=== PATIENT | female | born 1955 | race Caucasian/White ===

== ENCOUNTER 2020-07-09 18:39 | Inpatient (IN) ==
[2020-07-09] MEDS ORDERED: Ondansetron ODT 4 MG TAB.RAPDIS SL PRN ×2 (21:08→23:47)
[2020-07-09] MEDS ORDERED: Naloxone 0.4 MG/ML INJ IVP PRN (21:08)
[2020-07-09] MEDS ORDERED: Acetaminophen 325 MG TABLET PO PRN (21:08)
[2020-07-09] MEDS: Ipratropium/Albuterol Neb 3 ML IH SCH (22:07)
[2020-07-09] MEDS: predniSONE 20 MG TABLET PO SCH (23:53)
[2020-07-09] MEDS: Nicotine 7 MG PATCH.TD24 TD SCH (23:53)
[2020-07-10] MEDS: *HR* OxyCODONE ER (12 HR) 20 MG TABLET PO SCH ×2 (04:27→17:26)
[2020-07-10] MEDS: Ipratropium/Albuterol Neb 3 ML IH SCH ×4 (04:27→22:28)
[2020-07-10 05:21] LABS: Basophils % 0.2 %; Hematocrit 48.5 % (35.3-44.9); Immature Granulocytes % 0.6 % (0-4); Lymphocytes # 0.7 K/mcL (0.6-4.6); Lymphocytes % 10.3 %; Mean Corpuscular HGB Conc 30.9 g/dL (31.6-35.5); Mean Corpuscular Hemoglobin 27.1 pg (28.0-33.3); Mean Corpuscular Volume 87.5 fL (83.0-100.0); Mean Platelet Volume 8.5 fL (9.4-12.4); Monocytes # 0.3 K/mcL (0.0-1.3); Monocytes % 4.9 %; Neutrophils # 5.3 K/mcL (1.6-8.9); Platelet Count 344 K/mcL (140-400); Red Blood Count 5.54 M/mcL (3.82-4.97); Red Cell Distribution Width 17.7 % (11.5-14.5); White Blood Count 6.3 K/mcL (4.3-11.1)
[2020-07-10 05:38] LABS: BUN/Creatinine Ratio 21 (6-26); Blood Urea Nitrogen 17 mg/dL (8-23); Calcium 8.8 mg/dL (8.6-10.3); Carbon Dioxide 25 mEq/L (23-29); Chloride 101 mEq/L (98-107); Glucose 108 mg/dL (70-105); Osmolality,Calculated 286 (280-300); Potassium 4.4 mEq/L (3.5-5.1); Sodium 137 mEq/L (136-145); eGFR For African Americans > 60 (> 60); eGFR For Non-African Americans > 60 (> 60)
[2020-07-10] MEDS: Gabapentin 300 MG CAPSULE PO SCH ×3 (09:44→22:59)
[2020-07-10] MEDS: Aspirin 81 MG TAB.CHEW PO SCH (09:45)
[2020-07-10] MEDS: predniSONE 20 MG TABLET PO SCH (09:45)
[2020-07-10] MEDS: Nicotine 7 MG PATCH.TD24 TD SCH (09:45)
[2020-07-10] MEDS: Budesonide/Formoterol 80/4.5 1 PUFF INH IH SCH ×2 (10:45→22:30)
[2020-07-10 17:26] LABS: Bilirubin,Urine Negative (Negative); Blood,Urine Moderate (Negative); Clarity,Urine Cloudy (Clear); Color,Urine Yellow (Yellow); Glucose,Urine (UA) Normal (Normal); Ketones,Urine 15 mg/dL (Negative); Leukocyte Esterase,Urine Moderate (Negative); Nitrite,Urine Positive (Negative); PH,Urine >=9.0 pH Units (5.0-8.0); Protein,Urine >=300 mg/dL (Neg-Trace); Urobilinogen,Urine Normal (Normal)
[2020-07-10] MEDS: *HR* Rivaroxaban 10 MG TABLET PO SCH (17:26)
[2020-07-10 17:35] LABS: RBC,Urine 15-30 per hpf (0-3); Triple Phosphate Crystal,Urine Present
[2020-07-10 17:36] LABS: Bacteria,Urine Moderate per hpf (None-Few); WBC,Urine 15-30 per hpf (0-3)
[2020-07-10] MEDS: Ibuprofen 400 MG TABLET PO PRN (22:59)
[2020-07-11] MEDS: Ipratropium/Albuterol Neb 3 ML IH SCH ×4 (04:39→21:39)
[2020-07-11] MEDS: *HR* OxyCODONE ER (12 HR) 20 MG TABLET PO SCH ×2 (04:39→18:13)
[2020-07-11 06:31] LABS: Basophils % 0.1 %; Eosinophils % 0.3 %; Hematocrit 41.9 % (35.3-44.9); Hemoglobin 13.2 g/dL (11.5-15.4); Immature Granulocytes % 0.5 % (0-4); Lymphocytes # 1.2 K/mcL (0.6-4.6); Lymphocytes % 11.7 %; Mean Corpuscular HGB Conc 31.5 g/dL (31.6-35.5); Mean Corpuscular Hemoglobin 27.3 pg (28.0-33.3); Mean Corpuscular Volume 86.7 fL (83.0-100.0); Mean Platelet Volume 8.4 fL (9.4-12.4); Monocytes # 0.8 K/mcL (0.0-1.3); Neutrophils # 8.1 K/mcL (1.6-8.9); Platelet Count 289 K/mcL (140-400); Red Blood Count 4.83 M/mcL (3.82-4.97); Red Cell Distribution Width 17.1 % (11.5-14.5); Segmented Neutrophils % 79.4 %; White Blood Count 10.2 K/mcL (4.3-11.1)
[2020-07-11 06:48] LABS: BUN/Creatinine Ratio 25 (6-26); Blood Urea Nitrogen 23 mg/dL (8-23); Calcium 8.3 mg/dL (8.6-10.3); Carbon Dioxide 30 mEq/L (23-29); Chloride 101 mEq/L (98-107); Glucose 95 mg/dL (70-105); Osmolality,Calculated 283 (280-300); Potassium 3.7 mEq/L (3.5-5.1); Sodium 135 mEq/L (136-145); eGFR For African Americans > 60 (> 60); eGFR For Non-African Americans > 60 (> 60)
[2020-07-11] MEDS: Budesonide/Formoterol 80/4.5 1 PUFF INH IH SCH ×2 (09:06→21:39)
[2020-07-11] MEDS: Aspirin 81 MG TAB.CHEW PO SCH (10:02)
[2020-07-11] MEDS: Gabapentin 300 MG CAPSULE PO SCH ×3 (10:02→20:41)
[2020-07-11] MEDS: Nicotine 7 MG PATCH.TD24 TD SCH (10:03)
[2020-07-11] MEDS: predniSONE 20 MG TABLET PO SCH (10:03)
[2020-07-11] MEDS: Ibuprofen 400 MG TABLET PO PRN (13:51)
[2020-07-11] MEDS: *HR* Rivaroxaban 10 MG TABLET PO SCH (18:13)
[2020-07-12] MEDS: *HR* OxyCODONE ER (12 HR) 20 MG TABLET PO SCH ×2 (05:30→17:11)
[2020-07-12] MEDS: Ipratropium/Albuterol Neb 3 ML IH SCH ×4 (05:30→21:44)
[2020-07-12 06:00] LABS: Basophils % 0.1 %; Eosinophils % 0.1 %; Hematocrit 40.5 % (35.3-44.9); Hemoglobin 12.6 g/dL (11.5-15.4); Immature Granulocytes % 0.5 % (0-4); Lymphocytes % 13.9 %; Mean Corpuscular HGB Conc 31.1 g/dL (31.6-35.5); Mean Corpuscular Hemoglobin 27.2 pg (28.0-33.3); Mean Corpuscular Volume 87.5 fL (83.0-100.0); Mean Platelet Volume 8.1 fL (9.4-12.4); Monocytes # 0.7 K/mcL (0.0-1.3); Monocytes % 8.8 %; Neutrophils # 5.7 K/mcL (1.6-8.9); Platelet Count 223 K/mcL (140-400); Red Blood Count 4.63 M/mcL (3.82-4.97); Segmented Neutrophils % 76.6 %; White Blood Count 7.5 K/mcL (4.3-11.1)
[2020-07-12 06:46] LABS: BUN/Creatinine Ratio 25 (6-26); Blood Urea Nitrogen 19 mg/dL (8-23); Calcium 8.1 mg/dL (8.6-10.3); Carbon Dioxide 28 mEq/L (23-29); Chloride 105 mEq/L (98-107); Glucose 99 mg/dL (70-105); Osmolality,Calculated 284 (280-300); Sodium 136 mEq/L (136-145); eGFR For African Americans > 60 (> 60); eGFR For Non-African Americans > 60 (> 60)
[2020-07-12] MEDS: Budesonide/Formoterol 80/4.5 1 PUFF INH IH SCH ×2 (10:09→21:47)
[2020-07-12] MEDS: *HR* OxyCODONE Immed Rel 15 MG TABLET PO PRN (10:38)
[2020-07-12] MEDS: Gabapentin 300 MG CAPSULE PO SCH ×3 (10:38→20:59)
[2020-07-12] MEDS: Nicotine 7 MG PATCH.TD24 TD SCH (10:38)
[2020-07-12] MEDS: predniSONE 20 MG TABLET PO SCH (10:38)
[2020-07-12] MEDS: Aspirin 81 MG TAB.CHEW PO SCH (10:40)
[2020-07-12] MEDS: *HR* Rivaroxaban 10 MG TABLET PO SCH (15:57)
[2020-07-13] MEDS: Ipratropium/Albuterol Neb 3 ML IH SCH ×4 (04:13→22:14)
[2020-07-13] MEDS: *HR* OxyCODONE ER (12 HR) 20 MG TABLET PO SCH ×2 (06:37→17:58)
[2020-07-13] MEDS: predniSONE 20 MG TABLET PO SCH (09:28)
[2020-07-13] MEDS: Aspirin 81 MG TAB.CHEW PO SCH (09:28)
[2020-07-13] MEDS: Nicotine 7 MG PATCH.TD24 TD SCH (09:28)
[2020-07-13] MEDS: Gabapentin 300 MG CAPSULE PO SCH ×3 (09:28→19:58)
[2020-07-13] MEDS: *HR* OxyCODONE Immed Rel 15 MG TABLET PO PRN (09:31)
[2020-07-13] MEDS: Budesonide/Formoterol 80/4.5 1 PUFF INH IH SCH ×2 (11:44→22:17)
[2020-07-13] MEDS: *HR* Rivaroxaban 10 MG TABLET PO SCH (15:43)
[2020-07-14] MEDS: Ipratropium/Albuterol Neb 3 ML IH SCH ×2 (03:58→10:15)
[2020-07-14] MEDS: *HR* OxyCODONE ER (12 HR) 20 MG TABLET PO SCH (05:07)
[2020-07-14] MEDS: predniSONE 20 MG TABLET PO SCH (08:54)
[2020-07-14] MEDS: Aspirin 81 MG TAB.CHEW PO SCH (08:54)
[2020-07-14] MEDS: Gabapentin 300 MG CAPSULE PO SCH ×2 (08:54→14:49)
[2020-07-14] MEDS: Nicotine 7 MG PATCH.TD24 TD SCH (08:55)
[2020-07-14] MEDS: Budesonide/Formoterol 80/4.5 1 PUFF INH IH SCH (10:15)
[2020-07-14 11:17] VITALS: BP 110/67
[2020-07-14] MEDS ORDERED: FLU Vac QV 20-21 (6Month+)/PF 0.5 ML SYRINGE IM ONE (14:15)
== END 2020-07-14 16:26 | disposition home health service (06) | DRG 191 ==
LOC: INPGRE
PROVIDERS: ADMIT Family Medicine; ATTEND Family Medicine

== ENCOUNTER 2021-05-02 10:29 | Inpatient (IN) ==
[2021-05-02 11:20] LABS: Hematocrit 44.9 % (35.3-44.9); Hemoglobin 13.9 g/dL (11.5-15.4); Mean Corpuscular Hemoglobin 28.3 pg (28.0-33.3); Mean Corpuscular Volume 91.3 fL (83.0-100.0); Mean Platelet Volume 8.1 fL (9.4-12.4); Platelet Count 232 K/mcL (140-400); Red Blood Count 4.92 M/mcL (3.82-4.97); Red Cell Distribution Width 14.8 % (11.5-14.5); White Blood Count 10.1 K/mcL (4.3-11.1)
[2021-05-02 11:29] LABS: INR 1.1; Prothrombin Time 12.2 Seconds (9.4-12.1)
[2021-05-02 11:38] LABS: Bilirubin,Urine Small (Negative); Blood,Urine Moderate (Negative); Color,Urine Yellow (Yellow); Glucose,Urine (UA) Normal (Normal); Ketones,Urine Negative (Negative); Leukocyte Esterase,Urine Large (Negative); Nitrite,Urine Negative (Negative); PH,Urine 8.5 pH Units (5.0-8.0); Protein,Urine 30 mg/dL (Neg-Trace); Specific Gravity,Urine 1.015 (1.010-1.025); Urobilinogen,Urine Normal (Normal)
[2021-05-02 11:38] LABS: BUN/Creatinine Ratio 11 (6-26); Blood Urea Nitrogen 9 mg/dL (8-23); Calcium 8.6 mg/dL (8.6-10.3); Carbon Dioxide 33 mEq/L (23-29); Chloride 100 mEq/L (98-107); Glucose 76 mg/dL (70-105); Osmolality,Calculated 281 (280-300); Potassium 4.3 mEq/L (3.5-5.1); Sodium 137 mEq/L (136-145); eGFR For African Americans > 60 (> 60); eGFR For Non-African Americans > 60 (> 60)
[2021-05-02 11:39] LABS: Troponin I < 0.03 ng/mL (< 0.04)
[2021-05-02 11:39] LABS: Clarity,Urine Cloudy (Clear)
[2021-05-02 11:42] LABS: Bacteria,Urine Many per hpf (None-Few)
[2021-05-02] MEDS ORDERED: Piperacillin/Tazobactam 3.375 GM in 0.9 % Sodium Chloride Mini Bag 100 ML IVPB ONE (11:54)
[2021-05-02] MEDS ORDERED: Ondansetron ODT 4 MG TAB.RAPDIS PO PRN (16:02)
[2021-05-02] MEDS ORDERED: Acetaminophen 325 MG TABLET PO PRN (16:02)
[2021-05-02] MEDS: MethylPREDNISolone 40 MG/ML VIAL IVP SCH (17:35)
[2021-05-02] MEDS: Budesonide/Formoterol 160/4.5 1 PUFF INH IH SCH (20:37)
[2021-05-02] MEDS: Ipratropium/Albuterol Neb 3 ML IH PRN (20:38)
[2021-05-02] MEDS: Gabapentin 300 MG CAPSULE PO SCH (20:53)
[2021-05-02] MEDS: Piperacillin/Tazobactam 3.375 GM in 0.9 % Sodium Chloride Mini Bag 100 ML IVPB SCH (20:53)
[2021-05-03] MEDS: MethylPREDNISolone 40 MG/ML VIAL IVP SCH ×4 (00:42→23:03)
[2021-05-03] MEDS: Piperacillin/Tazobactam 3.375 GM in 0.9 % Sodium Chloride Mini Bag 100 ML IVPB SCH ×3 (05:06→20:42)
[2021-05-03 05:19] LABS: Basophils % 0.2 %; Hematocrit 47.4 % (35.3-44.9); Hemoglobin 14.5 g/dL (11.5-15.4); Immature Granulocytes % 0.9 % (0-4); Lymphocytes # 0.5 K/mcL (0.6-4.6); Lymphocytes % 5.2 %; Mean Corpuscular HGB Conc 30.6 g/dL (31.6-35.5); Mean Corpuscular Hemoglobin 27.9 pg (28.0-33.3); Mean Corpuscular Volume 91.3 fL (83.0-100.0); Mean Platelet Volume 8.2 fL (9.4-12.4); Monocytes # 0.1 K/mcL (0.0-1.3); Monocytes % 0.7 %; Neutrophils # 9.2 K/mcL (1.6-8.9); Platelet Count 252 K/mcL (140-400); Red Blood Count 5.19 M/mcL (3.82-4.97); Red Cell Distribution Width 14.8 % (11.5-14.5); White Blood Count 9.9 K/mcL (4.3-11.1)
[2021-05-03 05:35] LABS: Alanine Aminotransferase 10 Units/L (7-52); Albumin 3.8 g/dL (3.5-5.7); Albumin/Globulin Ratio 1.2 (1.1-2.2); Alkaline Phosphatase 119 Units/L (34-104); Aspartate Amino Transferase 15 Units/L (13-39); BUN/Creatinine Ratio 15 (6-26); Bilirubin,Total 0.6 mg/dL (0.3-1.0); Blood Urea Nitrogen 14 mg/dL (8-23); Calcium 8.9 mg/dL (8.6-10.3); Carbon Dioxide 29 mEq/L (23-29); Chloride 99 mEq/L (98-107); Globulin 3.1 g/dL (2.4-3.5); Glucose 103 mg/dL (70-105); Osmolality,Calculated 283 (280-300); Potassium 4.5 mEq/L (3.5-5.1); Sodium 136 mEq/L (136-145); Total Protein 6.9 g/dL (6.4-8.9); eGFR For African Americans > 60 (> 60); eGFR For Non-African Americans > 60 (> 60)
[2021-05-03] MEDS ORDERED: *HR* Enoxaparin 30 MG/0.3 ML SYRINGE SQ SCH (06:00)
[2021-05-03] MEDS: Budesonide/Formoterol 160/4.5 1 PUFF INH IH SCH ×2 (09:25→21:49)
[2021-05-03] MEDS: Ipratropium/Albuterol Neb 3 ML IH PRN ×2 (09:26→16:18)
[2021-05-03] MEDS: Gabapentin 300 MG CAPSULE PO SCH ×3 (09:35→20:42)
[2021-05-03] MEDS: *HR* Buprenorphine HCl 8 MG TAB.SUBL SL SCH (20:42)
[2021-05-04] MEDS: Piperacillin/Tazobactam 3.375 GM in 0.9 % Sodium Chloride Mini Bag 100 ML IVPB SCH ×3 (03:59→20:15)
[2021-05-04] MEDS: *HR* Enoxaparin 40 MG/0.4 ML SYRINGE SQ SCH (05:18)
[2021-05-04] MEDS: *HR* Buprenorphine HCl 8 MG TAB.SUBL SL SCH ×2 (08:59→20:15)
[2021-05-04] MEDS: Gabapentin 300 MG CAPSULE PO SCH ×3 (08:59→20:15)
[2021-05-04] MEDS: MethylPREDNISolone 40 MG/ML VIAL IVP SCH ×2 (08:59→17:11)
[2021-05-04] MEDS: Budesonide/Formoterol 160/4.5 1 PUFF INH IH SCH ×2 (09:53→20:11)
[2021-05-05] MEDS: Piperacillin/Tazobactam 3.375 GM in 0.9 % Sodium Chloride Mini Bag 100 ML IVPB SCH (03:58)
[2021-05-05 05:08] LABS: Hematocrit 40.4 % (35.3-44.9); Immature Granulocytes % 0.8 % (0-4); Lymphocytes # 0.5 K/mcL (0.6-4.6); Lymphocytes % 6.3 %; Mean Corpuscular HGB Conc 30.9 g/dL (31.6-35.5); Mean Corpuscular Hemoglobin 28.5 pg (28.0-33.3); Mean Corpuscular Volume 92.2 fL (83.0-100.0); Mean Platelet Volume 8.6 fL (9.4-12.4); Monocytes # 0.2 K/mcL (0.0-1.3); Monocytes % 3.3 %; Neutrophils # 6.5 K/mcL (1.6-8.9); Platelet Count 197 K/mcL (140-400); Red Blood Count 4.38 M/mcL (3.82-4.97); Red Cell Distribution Width 14.9 % (11.5-14.5); Segmented Neutrophils % 89.6 %; White Blood Count 7.3 K/mcL (4.3-11.1)
[2021-05-05 05:11] LABS: Hemoglobin 12.5 g/dL (11.5-15.4)
[2021-05-05] MEDS: MethylPREDNISolone 40 MG/ML VIAL IVP SCH (05:11)
[2021-05-05] MEDS: *HR* Enoxaparin 40 MG/0.4 ML SYRINGE SQ SCH (05:11)
[2021-05-05 05:21] LABS: BUN/Creatinine Ratio 25 (6-26); Blood Urea Nitrogen 20 mg/dL (8-23); Calcium 8.3 mg/dL (8.6-10.3); Carbon Dioxide 34 mEq/L (23-29); Chloride 101 mEq/L (98-107); Glucose 117 mg/dL (70-105); Osmolality,Calculated 288 (280-300); Potassium 4.6 mEq/L (3.5-5.1); Sodium 137 mEq/L (136-145); eGFR For African Americans > 60 (> 60); eGFR For Non-African Americans > 60 (> 60)
[2021-05-05 08:38] VITALS: BP 148/71; PULSE 87; RESP 14; TEMP 98.4; O2SAT 95
[2021-05-05] MEDS: Budesonide/Formoterol 160/4.5 1 PUFF INH IH SCH (09:37)
[2021-05-05] MEDS: *HR* Buprenorphine HCl 8 MG TAB.SUBL SL SCH (09:38)
[2021-05-05] MEDS: Gabapentin 300 MG CAPSULE PO SCH (09:38)
[2021-05-05] MEDS: Ipratropium/Albuterol Neb 3 ML IH PRN (09:41)
== END 2021-05-05 11:00 | DRG 698 ==
LOC: SUPCPDRO → EMEROOGRE 10:29 → INPGRE 13:30
PROVIDERS: ADMIT Family Medicine; ATTEND Family Medicine

== ENCOUNTER 2021-05-29 09:15 | Inpatient (IN) ==
[2021-05-29] MEDS ORDERED: Levalbuterol Neb 1.25 MG/3 ML IH ONE (09:32)
[2021-05-29] MEDS ORDERED: Levalbuterol Neb 1.25 MG/3 ML ONE (09:39)
[2021-05-29 10:03] LABS: Basophils % 0.6 %; Eosinophils # 0.1 K/mcL (0.0-0.6); Hematocrit 43.8 % (35.3-44.9); Hemoglobin 13.5 g/dL (11.5-15.4); Immature Granulocytes % 1.3 % (0-4); Lymphocytes # 0.7 K/mcL (0.6-4.6); Lymphocytes % 9.8 %; Mean Corpuscular HGB Conc 30.8 g/dL (31.6-35.5); Mean Corpuscular Hemoglobin 28.2 pg (28.0-33.3); Mean Corpuscular Volume 91.4 fL (83.0-100.0); Mean Platelet Volume 8.3 fL (9.4-12.4); Monocytes # 0.5 K/mcL (0.0-1.3); Monocytes % 6.7 %; Neutrophils # 5.6 K/mcL (1.6-8.9); Platelet Count 272 K/mcL (140-400); Red Blood Count 4.79 M/mcL (3.82-4.97); Red Cell Distribution Width 16.6 % (11.5-14.5); Segmented Neutrophils % 80.6 %
[2021-05-29 10:16] LABS: Magnesium 1.7 mg/dL (1.6-2.6)
[2021-05-29 10:17] LABS: Alanine Aminotransferase 13 Units/L (7-52); Albumin 3.2 g/dL (3.5-5.7); Albumin/Globulin Ratio 0.9 (1.1-2.2); Alkaline Phosphatase 93 Units/L (34-104); Aspartate Amino Transferase 11 Units/L (13-39); BUN/Creatinine Ratio 12 (6-26); Bilirubin,Total 0.3 mg/dL (0.3-1.0); Blood Urea Nitrogen 9 mg/dL (8-23); Calcium 8.5 mg/dL (8.6-10.3); Carbon Dioxide 27 mEq/L (23-29); Chloride 106 mEq/L (98-107); Globulin 3.7 g/dL (2.4-3.5); Glucose 86 mg/dL (70-105); Osmolality,Calculated 288 (280-300); Potassium 4.2 mEq/L (3.5-5.1); Sodium 140 mEq/L (136-145); Total Protein 6.9 g/dL (6.4-8.9); eGFR For African Americans > 60 (> 60); eGFR For Non-African Americans > 60 (> 60)
[2021-05-29 10:19] LABS: ABG Base Excess -1 mEq/L (-2 to 3); ABG HCO3 25 mEq/L (21-27); ABG Oxygen Saturation 97 % (95-98); ABG PCO2 45 mmHg (35-45); ABG PH 7.36 pH Units (7.32-7.45); ABG PO2 98 mmHg (85-104); ABG TCO2 27 mEq/L (20-26)
[2021-05-29 10:21] LABS: Troponin I < 0.03 ng/mL (< 0.04)
[2021-05-29] MEDS ORDERED: 0.9 % Sodium Chloride 500 ML IVC ONE (11:49)
[2021-05-29] MEDS ORDERED: Ondansetron 4 MG/2 ML VIAL IVP PRN (12:20)
[2021-05-29] MEDS ORDERED: Acetaminophen 325 MG TABLET PO PRN (12:20)
[2021-05-29] MEDS ORDERED: Naloxone 0.4 MG/ML INJ IVP PRN (12:20)
[2021-05-29] MEDS: Budesonide/Formoterol 160/4.5 1 PUFF INH IH SCH ×2 (13:10→20:32)
[2021-05-29] MEDS: Ipratropium/Albuterol Neb 3 ML IH SCH ×4 (13:13→23:59)
[2021-05-29] MEDS: MethylPREDNISolone 40 MG/ML VIAL IVP SCH ×3 (14:45→22:27)
[2021-05-29] MEDS: levoFLOXacin 750 MG/150 ML 750 MG/150 ML BAG IVPB SCH (14:46)
[2021-05-29] MEDS: Gabapentin 300 MG CAPSULE PO SCH ×2 (14:46→22:27)
[2021-05-29 20:12] LABS: Adenovirus Not Detected (Not Detect); Bordetella Pertussis Not Detected (Not Detect); Chlamydophila pneumoniae Not Detected (Not Detect); Coronavirus 229E Not Detected (Not Detect); Coronavirus HKU1 Not Detected (Not Detect); Coronavirus NL63 Not Detected (Not Detect); Coronavirus OC43 Not Detected (Not Detect); Human Metapneumovirus Not Detected (Not Detect); Human Rhinovirus/Enterovirus Not Detected (Not Detect); Influenza A Subtype 2009 H1 Not Detected (Not Detect); Influenza B Not Detected (Not Detect); Mycoplasma pneumoniae Not Detected (Not Detect); Parainfluenza Virus 1 Not Detected (Not Detect); Parainfluenza Virus 2 Not Detected (Not Detect); Parainfluenza Virus 3 Not Detected (Not Detect); Parainfluenza Virus 4 Not Detected (Not Detect); Respiratory Syncytial Virus Not Detected (Not Detect); SARS-CoV-2 Not Detected (Not Detect)
[2021-05-30] MEDS: Ipratropium/Albuterol Neb 3 ML IH SCH ×6 (03:56→23:49)
[2021-05-30] MEDS: MethylPREDNISolone 40 MG/ML VIAL IVP SCH ×4 (05:30→23:42)
[2021-05-30] MEDS: *HR* Enoxaparin 40 MG/0.4 ML SYRINGE SQ SCH (05:31)
[2021-05-30] MEDS: Budesonide/Formoterol 160/4.5 1 PUFF INH IH SCH ×2 (07:00→20:00)
[2021-05-30 07:41] LABS: Hematocrit 41.6 % (35.3-44.9); Hemoglobin 12.6 g/dL (11.5-15.4); Mean Corpuscular HGB Conc 30.3 g/dL (31.6-35.5); Mean Corpuscular Hemoglobin 27.9 pg (28.0-33.3); Mean Corpuscular Volume 92.2 fL (83.0-100.0); Mean Platelet Volume 8.3 fL (9.4-12.4); Platelet Count 255 K/mcL (140-400); Red Blood Count 4.51 M/mcL (3.82-4.97); Red Cell Distribution Width 16.7 % (11.5-14.5); White Blood Count 4.5 K/mcL (4.3-11.1)
[2021-05-30 07:44] LABS: BUN/Creatinine Ratio 21 (6-26); Blood Urea Nitrogen 13 mg/dL (8-23); Calcium 8.4 mg/dL (8.6-10.3); Carbon Dioxide 26 mEq/L (23-29); Chloride 106 mEq/L (98-107); Glucose 126 mg/dL (70-105); Magnesium 1.8 mg/dL (1.6-2.6); Osmolality,Calculated 290 (280-300); Potassium 4.1 mEq/L (3.5-5.1); Sodium 139 mEq/L (136-145); eGFR For African Americans > 60 (> 60); eGFR For Non-African Americans > 60 (> 60)
[2021-05-30] MEDS: levoFLOXacin 750 MG/150 ML 750 MG/150 ML BAG IVPB SCH (09:15)
[2021-05-30] MEDS: Gabapentin 300 MG CAPSULE PO SCH ×3 (09:26→20:59)
[2021-05-31] MEDS: Ipratropium/Albuterol Neb 3 ML IH SCH ×6 (03:52→23:43)
[2021-05-31] MEDS: *HR* Enoxaparin 40 MG/0.4 ML SYRINGE SQ SCH (05:33)
[2021-05-31] MEDS: Budesonide/Formoterol 160/4.5 1 PUFF INH IH SCH ×2 (06:43→20:11)
[2021-05-31] MEDS: MethylPREDNISolone 40 MG/ML VIAL IVP SCH ×2 (08:13→14:51)
[2021-05-31] MEDS: Gabapentin 300 MG CAPSULE PO SCH ×3 (08:13→19:48)
[2021-05-31] MEDS: levoFLOXacin 750 MG/150 ML 750 MG/150 ML BAG IVPB SCH (08:14)
[2021-06-01] MEDS: MethylPREDNISolone 40 MG/ML VIAL IVP SCH ×3 (00:08→16:56)
[2021-06-01] MEDS: Ipratropium/Albuterol Neb 3 ML IH SCH ×6 (03:56→23:49)
[2021-06-01] MEDS: *HR* Enoxaparin 40 MG/0.4 ML SYRINGE SQ SCH (05:17)
[2021-06-01] MEDS: Budesonide/Formoterol 160/4.5 1 PUFF INH IH SCH ×2 (08:33→19:49)
[2021-06-01] MEDS: Gabapentin 300 MG CAPSULE PO SCH ×3 (09:13→21:30)
[2021-06-01] MEDS: levoFLOXacin 750 MG/150 ML 750 MG/150 ML BAG IVPB SCH (09:14)
[2021-06-01 13:29] LABS: BUN/Creatinine Ratio 33 (6-26); Blood Urea Nitrogen 23 mg/dL (8-23); Calcium 8.6 mg/dL (8.6-10.3); Carbon Dioxide 30 mEq/L (23-29); Chloride 103 mEq/L (98-107); Glucose 148 mg/dL (70-105); Osmolality,Calculated 294 (280-300); Potassium 4.1 mEq/L (3.5-5.1); Sodium 139 mEq/L (136-145); eGFR For African Americans > 60 (> 60); eGFR For Non-African Americans > 60 (> 60)
[2021-06-01 14:21] LABS: Basophils % 0.1 %; Hematocrit 42.7 % (35.3-44.9); Immature Granulocytes % 1.3 % (0-4); Lymphocytes # 0.3 K/mcL (0.6-4.6); Mean Corpuscular HGB Conc 30.4 g/dL (31.6-35.5); Mean Platelet Volume 8.9 fL (9.4-12.4); Monocytes # 0.5 K/mcL (0.0-1.3); Monocytes % 7.3 %; Neutrophils # 5.9 K/mcL (1.6-8.9); Platelet Count 236 K/mcL (140-400); Red Blood Count 4.64 M/mcL (3.82-4.97); Segmented Neutrophils % 86.3 %; White Blood Count 6.8 K/mcL (4.3-11.1)
[2021-06-02] MEDS: Ipratropium/Albuterol Neb 3 ML IH SCH ×3 (03:28→12:45)
[2021-06-02] MEDS: MethylPREDNISolone 40 MG/ML VIAL IVP SCH (06:36)
[2021-06-02] MEDS: *HR* Enoxaparin 40 MG/0.4 ML SYRINGE SQ SCH (06:36)
[2021-06-02] MEDS ORDERED: levoFLOXacin 750 MG TABLET PO SCH (09:00)
[2021-06-02] MEDS: Budesonide/Formoterol 160/4.5 1 PUFF INH IH SCH (09:07)
[2021-06-02] MEDS: Gabapentin 300 MG CAPSULE PO SCH (09:59)
[2021-06-02 11:42] VITALS: RESP 17
[2021-06-02 11:43] VITALS: BP 109/58; PULSE 90; TEMP 98.2; O2SAT 96
== END 2021-06-02 15:14 | disposition home health service (06) | DRG 190 ==
LOC: INPGRE 09:15 → EMEROOGRE 09:15 → INPGRE 12:15
PROVIDERS: ADMIT Family Medicine; ATTEND Family Medicine